=== PATIENT | female | born 1955 | race Caucasian/White ===

== ENCOUNTER 2023-09-26 04:49 | Day surgery (SDC) | payer OTHER ==
[2023-09-22 16:50] VITALS: BMI 31.3
[2023-09-26] MEDS ORDERED: LIDOCAINE HCL/PF 2% SDV 5ML VIAL ONE (11:33)
[2023-09-26] MEDS ORDERED: PROPOFOL 20 ML ONE (11:33)
[2023-09-26] MEDS ORDERED: MIDAZOLAM HCL 2 MG/2 ML SINGLE DOSE VIAL ONE (11:33)
[2023-09-26] MEDS ORDERED: ceFAZolin SODIUM 1 GM VIAL ONE (12:17)
[2023-09-26] MEDS ORDERED: SODIUM CHLORIDE 0.9% P/F 10 ML VIAL IJ ONE (12:17)
[2023-09-26] MEDS ORDERED: ceFAZolin SODIUM 1 GM VIAL IVPB ONE (12:23)
[2023-09-26] MEDS ORDERED: PROMETHAZINE HCL 25 MG/1 ML VIAL IVPB PRN (12:49)
[2023-09-26] MEDS ORDERED: ONDANSETRON 4 MG/2 ML VIAL IVPUSH PRN (12:49)
[2023-09-26] MEDS ORDERED: LACTATED RINGERS SOLUTION 1,000 ML IV SCH (13:00)
[2023-09-26 13:37] VITALS: PULSE 71
[2023-09-26 14:06] VITALS: BP 107/57; RESP 17; TEMP 98
== END 2023-09-26 15:00 | disposition home or self-care (01) ==
LOC: JASU-SURG 04:49
PROVIDERS: ATTEND Urology
PROC: 0TVD8ZZ Restriction of Urethra, Via Natural or Artificial Opening Endoscopic (ICD-10-PCS; principal; 2023-09-26 12:00)
DX: N39.3 Stress incontinence (female) (male) (principal); N36.42 Intrinsic sphincter deficiency (ISD)
CPT/HCPCS: 51715; L8606; 82962; 94760